=== PATIENT | female | born 1985 | race Caucasian/White ===

== ENCOUNTER 2021-03-31 12:43 | Inpatient (IN) | payer MEDICAID ==
[2021-03-31] MEDS ORDERED: Ondansetron 4 MG/2 ML SDV IV PRN (15:21)
[2021-03-31] MEDS ORDERED: Sodium Chloride 0.9% 10 ML Syringe FLUSH PRN (15:21)
[2021-03-31] MEDS: Lactated Ringers 1,000 ML IV SCH (16:37)
[2021-03-31] MEDS: Ciprofloxacin in D5W 400 MG in Premix Bag 1 BAG IV SCH ×2 (16:38)
[2021-03-31] MEDS: Morphine 2 MG/ML SYRINGE IVPUSH PRN ×2 (17:08→20:58)
--- NOTE | 2021-03-31 17:56 | PCM.HP.2 ---
H&P History of Present Illness - General Date of Service: 03/31/21 Admit Problem/Dx: Admission Diagnosis/Problem Admission Diagnosis/Problem Diverticulitis Source of Information: Patient History Limitations: Reports: No Limitations - History of Present Illness Initial Comments - Free Text/Narative: This is a 35-year-old female patient came into the ER because of sharp abdominal pain mostly in the middle, left lower quadrant little bit on the right lower quadrant. She states she's been dealing with this for quite some time. On March 05 she was seen at [facility] and told she had heartburn. Her abdominal pain became worse so she was seen [place] in the ER was diagnosed with diverticulitis and treated with IV meds 1 and sent home on Augmentin for 10 days. She had a follow-up with GI in [place] and she was fine at that time. Yesterday at 3:30 PM she started abdominal pain that caused her to bend over and so she was seen in the ER. Lastly in the ER they saw her and told her she needed to be admitted. She has 2 children at home that are young and so she says I went home so I will come back and get admitted later. She states that her pain as described above it does not radiate. She denies any nausea or vomiting. She has normal bowel movements without blood constipation or diarrhea. She said the Augmentin did give her some loose stools but that got better. She denies dysuria, pyuria, hematuria. She denies any vaginal discharge. Special. Was the beginning of the month and appears regular. She denies being says she's not had sex in about a year. She is G 17 with 2 stillborns to living and the rest miscarriages. She had a CT last night in the ER that showed acute cecal diverticulitis with perforation no abscess. Bilateral Lower Abdomen Pain Score (Numeric/FACES): 2 - Related Data Allergies/Adverse Reactions: Allergies Allergy/AdvReac Type Severity Reaction Status Date / Time iodine Allergy Itching Verified 03/30/21 18:48 Past Medical History HEENT History: Reports: Impaired Vision Other HEENT History: has eyeglasses at home, not with her, doesn't wear these often Gastrointestinal History: Reports: Other (See Below) Other Gastrointestinal History: diverticulitis Genitourinary History: Reports: Renal Calculus Other Genitourinary History: hx lithrotripsy [employer]ST History: Reports: Other OB/BYN History: has a 5 year old and 10 year old Musculoskeletal History: Reports: Other (See Below) Other Musculoskeletal History: Ehler-danlos disorder most of her lift Endocrine/Metabolic History: Reports: Obesity/BMI 30+ - Infectious Disease History Infectious Disease History: Reports: Chicken Pox - Past Surgical History Female Surgical History: Reports: Other (See Below) Other Female Surgeries/Procedures: cervical circlage Other Musculoskeletal Surgeries/Procedures:: states that she has Ehler-danlos, that doesn't cause any problems for her at the present time. Social & Family History - Family History Family Medical History: No Pertinent Family History - Tobacco Use Tobacco Use Status *Q: Current Every Day Tobacco User Years of Tobacco use: 15 Packs/Tins Daily: 0.5 Second Hand Smoke Exposure: No - Caffeine Use Caffeine Use: Reports: Soda Caffeine Use Comment: 2 cans a day - Recreational Drug Use Recreational Drug Use: No H&P Review of Systems - Review of Systems: Review Of Systems: See Below General: Denies: Fever, Chills, Weakness, Diaphoresis HEENT: Reports: No Symptoms Pulmonary: Reports: No Symptoms Cardiovascular: Reports: No Symptoms Gastrointestinal: Reports: Abdominal Pain. Denies: Bloody Stool, Diarrhea Genitourinary: Reports: No Symptoms Musculoskeletal: Reports: No Symptoms Skin: Reports: No Symptoms Psychiatric: Reports: No Symptoms Neurological: Reports: No Symptoms Hematologic/Lymphatic: Reports: No Symptoms Immunologic: Reports: No Symptoms Exam - Exam Exam: See Below - Vital Signs Vital Signs: Last Vital Signs Temp 99 F 03/31/21 15:21 Pulse 95 03/31/21 15:21 Resp 18 03/31/21 15:21 BP 104/66 03/31/21 15:21 Pulse Ox 95 03/31/21 15:21 Weight: 307 lb - Exam General: Alert, Oriented, Sedated HEENT: PERRLA, Hearing Intact, Posterior Pharynx Clear, TMs Clear Neck: Supple, Trachea Midline Lungs: Clear to Auscultation, Normal Respiratory Effort Cardiovascular: Regular Rate, Regular Rhythm. No: Systolic Murmur GI/Abdominal Exam: Other (Soft with some pain midline above the umbilicus, left lower quadrant and right lower quadrant. No rebound or guarding. Normal bowel sounds.) Extremities: Normal Inspection, Non-Tender, No Pedal Edema Skin: Warm, Dry, Intact Neuro Extensive - Mental Status: Alert, Oriented x3, Normal Mood/Affect, Normal Cognition Psychiatric: Alert, Normal Affect, Normal Mood - Patient Data Lab Results Last 24 hrs: Laboratory Results - last 24 hr 03/31/21 03/31/21 03/31/21 Range/Units 15:23 15:45 15:45 WBC 11.4 H (3.0-10.3) x10-3/uL RBC 4.22 (3.60-5.20) x10(6)uL Hgb 13.0 (11.4-15.5) g/dL Hct 38.7 (34.2-48.2) % MCV 91.9 (76.7-100.5) fL MCH 30.8 (23.9-33.9) pg MCHC 33.5 (31.9-34.8) g/dL RDW 14.1 (12.3-16.5) % Plt Count 184 (151-488) x10(3)uL MPV 8.9 (7.1-12.4) fL Neut % (Auto) 73.6 (30.8-76.2) % Lymph % (Auto) 16.3 L (18.4-52.1) % [place] % (Auto) 9.3 (4.4-15.7) % Eos % (Auto) 0.5 L (0.6-8.1) % Baso % (Auto) 0.3 (0.2-1.5) % Neut # (Auto) 8.3 H (1.5-6.3) x10-3/uL Lymph # (Auto) 1.9 (1.0-4.4) x10-3/uL [place] # (Auto) 1.1 H (0.3-1.0) x10-3/uL Eos # (Auto) 0.1 (0.0-0.8) x10-3/uL Baso # (Auto) 0.0 (0.0-0.1) x10-3/uL Sodium 138 (135-145) mmol/L Potassium 3.5 (3.5-5.3) mmol/L Chloride 100 (100-110) mmol/L Carbon Dioxide 28 (21-32) mmol/L BUN 11 (7-18) mg/dL Creatinine 0.7 (0.55-1.02) mg/dL Est Cr Clr Drug Dosing 88.72 mL/min Estimated GFR (MDRD) > 60 (>60) BUN/Creatinine Ratio 15.7 (9-20) Glucose 100 (80-116) mg/dL Calcium 7.5 L (8.6-10.2) mg/dL Total Bilirubin 0.7 (0.1-1.3) mg/dL AST 18 D (5-25) IU/L ALT 38 H D (12-36) U/L Alkaline Phosphatase 60 (56-112) IU/L Total Protein 6.5 (6.0-8.0) g/dL Albumin 2.9 L (3.5-5.2) g/dL Globulin 3.6 g/dL Albumin/Globulin Ratio 0.8 Urine Color (YELLOW) Urine Appearance (CLEAR) Urine pH (5.0-6.5) Ur Specific [place] (1.010-1.025) Urine Protein (NEGATIVE) mg/dL Urine Glucose (UA) (NORMAL) mg/dL Urine Ketones (NEGATIVE) mg/dL Urine Occult Blood (NEGATIVE) Urine Nitrite (NEGATIVE) Urine Bilirubin (NEGATIVE) Urine Urobilinogen (NEGATIVE) mg/dL Ur Leukocyte Esterase (NEGATIVE) Urine RBC (0-5) Urine WBC (0-5) Ur Squamous Epith Cells (NS,R,O) Urine Bacteria (NS) SARS-CoV-2 RNA (GLENDA) Negative (NEGATIVE) 03/31/21 Range/Units 16:15 WBC (3.0-10.3) x10-3/uL RBC (3.60-5.20) x10(6)uL Hgb (11.4-15.5) g/dL Hct (34.2-48.2) % MCV (76.7-100.5) fL MCH (23.9-33.9) pg MCHC (31.9-34.8) g/dL RDW (12.3-16.5) % Plt Count (151-488) x10(3)uL MPV (7.1-12.4) fL Neut % (Auto) (30.8-76.2) % Lymph % (Auto) (18.4-52.1) % [place] % (Auto) (4.4-15.7) % Eos % (Auto) (0.6-8.1) % Baso % (Auto) (0.2-1.5) % Neut # (Auto) (1.5-6.3) x10-3/uL Lymph # (Auto) (1.0-4.4) x10-3/uL [place] # (Auto) (0.3-1.0) x10-3/uL Eos # (Auto) (0.0-0.8) x10-3/uL Baso # (Auto) (0.0-0.1) x10-3/uL Sodium (135-145) mmol/L Potassium (3.5-5.3) mmol/L Chloride (100-110) mmol/L Carbon Dioxide (21-32) mmol/L BUN (7-18) mg/dL Creatinine (0.55-1.02) mg/dL Est Cr Clr Drug Dosing mL/min Estimated GFR (MDRD) (>60) BUN/Creatinine Ratio (9-20) Glucose (80-116) mg/dL Calcium (8.6-10.2) mg/dL Total Bilirubin (0.1-1.3) mg/dL AST (5-25) IU/L ALT (12-36) U/L Alkaline Phosphatase (56-112) IU/L Total Protein (6.0-8.0) g/dL Albumin (3.5-5.2) g/dL Globulin g/dL Albumin/Globulin Ratio Urine Color [place] (YELLOW) Urine Appearance Slightly cloudy (CLEAR) Urine pH 5.0 (5.0-6.5) Ur Specific [place] 1.020 (1.010-1.025) Urine Protein Trace (NEGATIVE) mg/dL Urine Glucose (UA) Normal (NORMAL) mg/dL Urine Ketones 15 H (NEGATIVE) mg/dL Urine Occult Blood Negative (NEGATIVE) Urine Nitrite Negative (NEGATIVE) Urine Bilirubin Small H (NEGATIVE) Urine Urobilinogen 4 H (NEGATIVE) mg/dL Ur Leukocyte Esterase Small H (NEGATIVE) Urine RBC 0-5 (0-5) Urine WBC 0-5 (0-5) Ur Squamous Epith Cells Few H (NS,R,O) Urine Bacteria Few H (NS) SARS-CoV-2 RNA (GLENDA) (NEGATIVE) Result Diagrams: 03/31/21 15:45 03/31/21 15:45 Sepsis Event Note - Evaluation Sepsis Screening Result: No Definite Risk - Focused Exam Vital Signs: Vital Signs Temp Pulse Resp BP Pulse Ox 03/31/21 15:21 99 F 95 18 104/66 95 03/31/21 13:55 98.6 F 110 H 18 142/87 H - Problem List (1) Diverticulitis SNOMED Code(s): 013807296 ICD Code: K57.92 - DVTRCLI OF INTEST, PART UNSP, W/O PERF OR ABSCESS W/O BLEED Status: Acute Current Visit: Yes (2) Cecum perforation SNOMED Code(s): 458851039 ICD Code: K35.32 - ACUTE APPENDICITIS WITH PERF AND LOC PERITONITIS, W/O ABSCS Status: Acute Current Visit: Yes (3) Syl-Danlos syndrome SNOMED Code(s): 793076724 ICD Code: Q79.60 - SYL-DANLOS SYNDROME, UNSPECIFIED Status: Acute Current Visit: Yes Problem List Initiated/Reviewed/Updated: Yes Orders Last 24hrs: Active Orders 24 hr Category Date Time Status Patient Status [ADT] Routine ADT 03/31/21 15:21 Active Notify Provider Consults [RC] ASDIRECTED Care 03/31/21 15:24 Active Oxygen Therapy [RC] PRN Care 03/31/21 15:21 Active Up ad Nisha [RC] ASDIRECTED Care 03/31/21 15:21 Active VTE/DVT Education [RC] Per Unit Routine Care 03/31/21 15:21 Active Vital Signs [RC] Q4H Care 03/31/21 15:21 Active Consult to Physician [CONS] Routine Cons 03/31/21 15:21 Ordered Nothing per Oral Now Diet [DIET] Diet 03/31/21 Dinner Active CULTURE BLOOD [BC] Urgent Lab 03/31/21 15:45 Received CULTURE BLOOD [BC] Urgent Lab 03/31/21 15:50 Received Ciprofloxacin in D5W [Cipro in D5W 400 MG/200 ML] 400 Med 03/31/21 16:00 Active mg Premix Bag 1 bag IV Q12H Lactated Ringers [Ringers, Lactated] 1,000 ml Med 03/31/21 15:30 Active IV ASDIRECTED Morphine Med 03/31/21 15:26 Active 2 mg IVPUSH Q2H PRN Sodium Chloride 0.9% [Saline Flush] Med 03/31/21 15:21 Active 10 ml FLUSH ASDIRECTED PRN metroNIDAZOLE/Normal Saline [Flagyl in NS 500 MG/100 ML Med 03/31/21 17:00 Active ] 500 mg Premix Bag 1 bag IV Q8H Blood Culture x2 Reflex Set [OM.PC] Urgent Oth 03/31/21 15:21 Ordered Peripheral IV Insertion Adult [OM.PC] Routine Oth 03/31/21 15:21 Ordered Sequential Compression Device [OM.PC] Per Unit Routine Oth 03/31/21 15:22 Ordered Resuscitation Status Routine Resus Stat 03/31/21 15:21 Ordered Medication Orders Lactated Ringer's (Ringers, Lactated) 1,000 mls @ 125 mls/hr IV ASDIRECTED ANURAG Last Admin: 03/31/21 16:37 Dose: 125 mls/hr Documented by: LENCHO Metronidazole 500 mg/ Premix 100 mls @ 100 mls/hr IV Q8H AN[facility]AG Ciprofloxacin/Dextrose 400 mg/ (Premix) 200 mls @ 200 mls/hr IV Q12H ANURAG Last Admin: 03/31/21 16:38 Dose: 200 mls/hr Documented by: LENCHO Morphine Sulfate (Morphine 2 Mg/Ml Syringe) 2 mg IVPUSH Q2H PRN PRN Reason: Pain Last Admin: 03/31/21 17:08 Dose: 2 mg Documented by: WILMER Sodium Chloride (Sodium Chloride 0.9% 10 Ml Syringe) 10 ml FLUSH ASDIRECTED PRN PRN Reason: Keep Vein Open Last Admin: 03/31/21 16:36 Dose: 10 ml Documented by: LENCHO Assessment/Plan Comment:: 1. Admit to inpatient. 2. Full code. 3. Nothing by mouth 4. IV fluids LR at 125 mL an hour. 5. Dr. Bashir Khalil has been notified for consultation. 6. SCD for clot prophylaxis. Hold off on Lovenox until after surgical consult ation. 7. CBC, Chem-12, UA 8. Reviewed CT done last night in the chart. 9. Up ad nisha. 10. IV morphine 2 mg every 2 hours when necessary for pain - Mortality Measure Prognosis:: Good
[2021-03-31] MEDS: metroNIDAZOLE/Normal Saline 500 MG in Premix Bag 1 BAG IV SCH (17:57)
[2021-04-01] MEDS: metroNIDAZOLE/Normal Saline 500 MG in Premix Bag 1 BAG IV SCH ×3 (01:10→18:08)
[2021-04-01] MEDS: Morphine 2 MG/ML SYRINGE IVPUSH PRN ×2 (01:10→14:25)
[2021-04-01] MEDS: Ciprofloxacin in D5W 400 MG in Premix Bag 1 BAG IV SCH ×4 (04:15→16:12)
--- NOTE | 2021-04-01 07:30 | PCM.PN ---
- General Info Date of Service: 04/01/21 Admission Dx/Problem (Free Text): Admission Diagnosis/Problem Admission Diagnosis/Problem Diverticulitis Subjective Update: Patient states that she feels well except for abdominal pain when she tries to sit up from a supine position. She does not have any chest pain, fever, chills, shortness of breath, lower extremity swelling/pain, nausea, vomiting. She does state that she is a little hungry - Review of Systems General: Reports: No Symptoms HEENT: Reports: No Symptoms Pulmonary: Reports: No Symptoms Cardiovascular: Reports: No Symptoms Gastrointestinal: Reports: Abdominal Pain Genitourinary: Reports: No Symptoms Musculoskeletal: Reports: No Symptoms Skin: Reports: No Symptoms Neurological: Reports: No Symptoms Psychiatric: Reports: No Symptoms - Patient Data Vitals - Most Recent: Last Vital Signs Temp 36.9 C 04/01/21 04:15 Pulse 95 04/01/21 04:15 Resp 18 04/01/21 04:15 BP 113/59 L 04/01/21 04:15 Pulse Ox 91 L 04/01/21 04:15 Weight - Most Recent: 139.253 kg I&O - Last 24 Hours: Intake & Output 03/31/21 04/01/21 04/01/21 22:59 06:59 14:59 Intake Total 1095 Output Total 450 Balance -450 1095 Lab Results Last 24 Hours: Laboratory Results - last 24 hr 03/31/21 03/31/21 03/31/21 Range/Units 15:23 15:45 15:45 WBC 11.4 H (3.0-10.3) x10-3/uL RBC 4.22 (3.60-5.20) x10(6)uL Hgb 13.0 (11.4-15.5) g/dL Hct 38.7 (34.2-48.2) % MCV 91.9 (76.7-100.5) fL MCH 30.8 (23.9-33.9) pg MCHC 33.5 (31.9-34.8) g/dL RDW 14.1 (12.3-16.5) % Plt Count 184 (151-488) x10(3)uL MPV 8.9 (7.1-12.4) fL Neut % (Auto) 73.6 (30.8-76.2) % Lymph % (Auto) 16.3 L (18.4-52.1) % [place] % (Auto) 9.3 (4.4-15.7) % Eos % (Auto) 0.5 L (0.6-8.1) % Baso % (Auto) 0.3 (0.2-1.5) % Neut # (Auto) 8.3 H (1.5-6.3) x10-3/uL Lymph # (Auto) 1.9 (1.0-4.4) x10-3/uL [place] # (Auto) 1.1 H (0.3-1.0) x10-3/uL Eos # (Auto) 0.1 (0.0-0.8) x10-3/uL Baso # (Auto) 0.0 (0.0-0.1) x10-3/uL Sodium 138 (135-145) mmol/L Potassium 3.5 (3.5-5.3) mmol/L Chloride 100 (100-110) mmol/L Carbon Dioxide 28 (21-32) mmol/L BUN 11 (7-18) mg/dL Creatinine 0.7 (0.55-1.02) mg/dL Est Cr Clr Drug Dosing 88.72 mL/min Estimated GFR (MDRD) > 60 (>60) BUN/Creatinine Ratio 15.7 (9-20) Glucose 100 (80-116) mg/dL Calcium 7.5 L (8.6-10.2) mg/dL Total Bilirubin 0.7 (0.1-1.3) mg/dL AST 18 D (5-25) IU/L ALT 38 H D (12-36) U/L Alkaline Phosphatase 60 (56-112) IU/L Total Protein 6.5 (6.0-8.0) g/dL Albumin 2.9 L (3.5-5.2) g/dL Globulin 3.6 g/dL Albumin/Globulin Ratio 0.8 Urine Color (YELLOW) Urine Appearance (CLEAR) Urine pH (5.0-6.5) Ur Specific [place] (1.010-1.025) Urine Protein (NEGATIVE) mg/dL Urine Glucose (UA) (NORMAL) mg/dL Urine Ketones (NEGATIVE) mg/dL Urine Occult Blood (NEGATIVE) Urine Nitrite (NEGATIVE) Urine Bilirubin (NEGATIVE) Urine Urobilinogen (NEGATIVE) mg/dL Ur Leukocyte Esterase (NEGATIVE) Urine RBC (0-5) Urine WBC (0-5) Ur Squamous Epith Cells (NS,R,O) Urine Bacteria (NS) SARS-CoV-2 RNA (GLENDA) Negative (NEGATIVE) 03/31/21 Range/Units 16:15 WBC (3.0-10.3) x10-3/uL RBC (3.60-5.20) x10(6)uL Hgb (11.4-15.5) g/dL Hct (34.2-48.2) % MCV (76.7-100.5) fL MCH (23.9-33.9) pg MCHC (31.9-34.8) g/dL RDW (12.3-16.5) % Plt Count (151-488) x10(3)uL MPV (7.1-12.4) fL Neut % (Auto) (30.8-76.2) % Lymph % (Auto) (18.4-52.1) % [place] % (Auto) (4.4-15.7) % Eos % (Auto) (0.6-8.1) % Baso % (Auto) (0.2-1.5) % Neut # (Auto) (1.5-6.3) x10-3/uL Lymph # (Auto) (1.0-4.4) x10-3/uL [place] # (Auto) (0.3-1.0) x10-3/uL Eos # (Auto) (0.0-0.8) x10-3/uL Baso # (Auto) (0.0-0.1) x10-3/uL Sodium (135-145) mmol/L Potassium (3.5-5.3) mmol/L Chloride (100-110) mmol/L Carbon Dioxide (21-32) mmol/L BUN (7-18) mg/dL Creatinine (0.55-1.02) mg/dL Est Cr Clr Drug Dosing mL/min Estimated GFR (MDRD) (>60) BUN/Creatinine Ratio (9-20) Glucose (80-116) mg/dL Calcium (8.6-10.2) mg/dL Total Bilirubin (0.1-1.3) mg/dL AST (5-25) IU/L ALT (12-36) U/L Alkaline Phosphatase (56-112) IU/L Total Protein (6.0-8.0) g/dL Albumin (3.5-5.2) g/dL Globulin g/dL Albumin/Globulin Ratio Urine Color [place] (YELLOW) Urine Appearance Slightly cloudy (CLEAR) Urine pH 5.0 (5.0-6.5) Ur Specific [place] 1.020 (1.010-1.025) Urine Protein Trace (NEGATIVE) mg/dL Urine Glucose (UA) Normal (NORMAL) mg/dL Urine Ketones 15 H (NEGATIVE) mg/dL Urine Occult Blood Negative (NEGATIVE) Urine Nitrite Negative (NEGATIVE) Urine Bilirubin Small H (NEGATIVE) Urine Urobilinogen 4 H (NEGATIVE) mg/dL Ur Leukocyte Esterase Small H (NEGATIVE) Urine RBC 0-5 (0-5) Urine WBC 0-5 (0-5) Ur Squamous Epith Cells Few H (NS,R,O) Urine Bacteria Few H (NS) SARS-CoV-2 RNA (GLENDA) (NEGATIVE) Med Orders - Current: Current Medications Lactated Ringer's (Ringers, Lactated) 1,000 mls @ 125 mls/hr IV ASDIRECTED [facility] Last Admin: 03/31/21 16:37 Dose: 125 mls/hr Documented by: Metronidazole 500 mg/ Premix 100 mls @ 100 mls/hr IV Q8H [facility] Last Admin: 04/01/21 01:10 Dose: 100 mls/hr Documented by: Ciprofloxacin/Dextrose 400 mg/ (Premix) 200 mls @ 200 mls/hr IV Q12H [facility] Last Admin: 04/01/21 04:15 Dose: 200 mls/hr Documented by: Morphine Sulfate (Morphine 2 Mg/Ml Syringe) 2 mg IVPUSH Q2H PRN PRN Reason: Pain Last Admin: 04/01/21 01:10 Dose: 2 mg Documented by: Sodium Chloride (Sodium Chloride 0.9% 10 Ml Syringe) 10 ml FLUSH ASDIRECTED PRN PRN Reason: Keep Vein Open Last Admin: 03/31/21 16:36 Dose: 10 ml Documented by: Comments:: Patient was sitting up in bed talking with a friend on the phone, laughing and smiling when I walked into the room, she is alert, interactive, pleasant - Exam Quality Assessment: Supplemental Oxygen, DVT Prophylaxis, Skin Breakdown General: Alert, Oriented, Cooperative, No Acute Distress HEENT: EOMI Lungs: Clear to Auscultation Cardiovascular: Regular Rhythm, No Murmurs, Tachycardia GI/Abdominal Exam: Tender, Other (Bowel sounds are normally active in all 4 quadrants. There is occasional high-pitched bowel sound in the right lower quadrant) Extremities: Normal Inspection Peripheral Pulses: 2+: Radial (L), Radial (R), Dorsalis Pedis (L), Dorsalis Pedis (R) Skin: Warm, Dry, Intact Neurological: No New Focal Deficit Psy/Mental Status: Alert, Normal Affect, Normal Mood - Patient Data Lab Results Last 24 hrs: Laboratory Results - last 24 hr 03/31/21 03/31/21 03/31/21 Range/Units 15:23 15:45 15:45 WBC 11.4 H (3.0-10.3) x10-3/uL RBC 4.22 (3.60-5.20) x10(6)uL Hgb 13.0 (11.4-15.5) g/dL Hct 38.7 (34.2-48.2) % MCV 91.9 (76.7-100.5) fL MCH 30.8 (23.9-33.9) pg MCHC 33.5 (31.9-34.8) g/dL RDW 14.1 (12.3-16.5) % Plt Count 184 (151-488) x10(3)uL MPV 8.9 (7.1-12.4) fL Neut % (Auto) 73.6 (30.8-76.2) % Lymph % (Auto) 16.3 L (18.4-52.1) % [place] % (Auto) 9.3 (4.4-15.7) % Eos % (Auto) 0.5 L (0.6-8.1) % Baso % (Auto) 0.3 (0.2-1.5) % Neut # (Auto) 8.3 H (1.5-6.3) x10-3/uL Lymph # (Auto) 1.9 (1.0-4.4) x10-3/uL [place] # (Auto) 1.1 H (0.3-1.0) x10-3/uL Eos # (Auto) 0.1 (0.0-0.8) x10-3/uL Baso # (Auto) 0.0 (0.0-0.1) x10-3/uL Sodium 138 (135-145) mmol/L Potassium 3.5 (3.5-5.3) mmol/L Chloride 100 (100-110) mmol/L Carbon Dioxide 28 (21-32) mmol/L BUN 11 (7-18) mg/dL Creatinine 0.7 (0.55-1.02) mg/dL Est Cr Clr Drug Dosing 88.72 mL/min Estimated GFR (MDRD) > 60 (>60) BUN/Creatinine Ratio 15.7 (9-20) Glucose 100 (80-116) mg/dL Calcium 7.5 L (8.6-10.2) mg/dL Total Bilirubin 0.7 (0.1-1.3) mg/dL AST 18 D (5-25) IU/L ALT 38 H D (12-36) U/L Alkaline Phosphatase 60 (56-112) IU/L Total Protein 6.5 (6.0-8.0) g/dL Albumin 2.9 L (3.5-5.2) g/dL Globulin 3.6 g/dL Albumin/Globulin Ratio 0.8 Urine Color (YELLOW) Urine Appearance (CLEAR) Urine pH (5.0-6.5) Ur Specific [place] (1.010-1.025) Urine Protein (NEGATIVE) mg/dL Urine Glucose (UA) (NORMAL) mg/dL Urine Ketones (NEGATIVE) mg/dL Urine Occult Blood (NEGATIVE) Urine Nitrite (NEGATIVE) Urine Bilirubin (NEGATIVE) Urine Urobilinogen (NEGATIVE) mg/dL Ur Leukocyte Esterase (NEGATIVE) Urine RBC (0-5) Urine WBC (0-5) Ur Squamous Epith Cells (NS,R,O) Urine Bacteria (NS) SARS-CoV-2 RNA (GLENDA) Negative (NEGATIVE) 03/31/21 Range/Units 16:15 WBC (3.0-10.3) x10-3/uL RBC (3.60-5.20) x10(6)uL Hgb (11.4-15.5) g/dL Hct (34.2-48.2) % MCV (76.7-100.5) fL MCH (23.9-33.9) pg MCHC (31.9-34.8) g/dL RDW (12.3-16.5) % Plt Count (151-488) x10(3)uL MPV (7.1-12.4) fL Neut % (Auto) (30.8-76.2) % Lymph % (Auto) (18.4-52.1) % [place] % (Auto) (4.4-15.7) % Eos % (Auto) (0.6-8.1) % Baso % (Auto) (0.2-1.5) % Neut # (Auto) (1.5-6.3) x10-3/uL Lymph # (Auto) (1.0-4.4) x10-3/uL [place] # (Auto) (0.3-1.0) x10-3/uL Eos # (Auto) (0.0-0.8) x10-3/uL Baso # (Auto) (0.0-0.1) x10-3/uL Sodium (135-145) mmol/L Potassium (3.5-5.3) mmol/L Chloride (100-110) mmol/L Carbon Dioxide (21-32) mmol/L BUN (7-18) mg/dL Creatinine (0.55-1.02) mg/dL Est Cr Clr Drug Dosing mL/min Estimated GFR (MDRD) (>60) BUN/Creatinine Ratio (9-20) Glucose (80-116) mg/dL Calcium (8.6-10.2) mg/dL Total Bilirubin (0.1-1.3) mg/dL AST (5-25) IU/L ALT (12-36) U/L Alkaline Phosphatase (56-112) IU/L Total Protein (6.0-8.0) g/dL Albumin (3.5-5.2) g/dL Globulin g/dL Albumin/Globulin Ratio Urine Color [place] (YELLOW) Urine Appearance Slightly cloudy (CLEAR) Urine pH 5.0 (5.0-6.5) Ur Specific [place] 1.020 (1.010-1.025) Urine Protein Trace (NEGATIVE) mg/dL Urine Glucose (UA) Normal (NORMAL) mg/dL Urine Ketones 15 H (NEGATIVE) mg/dL Urine Occult Blood Negative (NEGATIVE) Urine Nitrite Negative (NEGATIVE) Urine Bilirubin Small H (NEGATIVE) Urine Urobilinogen 4 H (NEGATIVE) mg/dL Ur Leukocyte Esterase Small H (NEGATIVE) Urine RBC 0-5 (0-5) Urine WBC 0-5 (0-5) Ur Squamous Epith Cells Few H (NS,R,O) Urine Bacteria Few H (NS) SARS-CoV-2 RNA (GLENDA) (NEGATIVE) Result Diagrams: 03/31/21 15:45 03/31/21 15:45 Sepsis Event Note - Evaluation Sepsis Screening Result: No Definite Risk - Focused Exam Vital Signs: Vital Signs Temp Pulse Resp BP Pulse Ox 04/01/21 04:15 36.9 C 95 18 113/59 L 91 L 03/31/21 19:57 37.0 C 101 H 20 148/61 H 96 - Problem List & Annotations (1) Obesity SNOMED Code(s): 002417245, 698493803 Code(s): E66.9 - OBESITY, UNSPECIFIED Status: Chronic Current Visit: Yes (2) Diverticulitis SNOMED Code(s): 055449370 Code(s): K57.92 - DVTRCLI OF INTEST, PART UNSP, W/O PERF OR ABSCESS W/O BLEED Status: Acute Current Visit: Yes (3) Cecum perforation SNOMED Code(s): 473223618 Code(s): K35.32 - ACUTE APPENDICITIS WITH PERF AND LOC PERITONITIS, W/O ABSCS Status: Acute Current Visit: Yes (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 Appreciate Dr. Khalil consultation, further recommendations based on expert consultation Patient will remain n.p.o., continue lactated Ringer's at 125 mL/h Anticoagulation will be held pending surgery consultation, continue SCDs Disposition: Pending expert consultation. If the patient does not require surgery she will likely be advanced to a clear liquid diet this afternoon and if tolerated to solid food tomorrow. If the patient tolerates solid food she will likely be discharged on 04/02 in the afternoon or 04/03 with oral ciprofloxacin and metronidazole.
[2021-04-01] MEDS: Lactated Ringers 1,000 ML IV SCH ×2 (13:38→23:00)
[2021-04-01] MEDS: Acetaminophen 500 MG Tab PO PRN (20:17)
[2021-04-02] MEDS: metroNIDAZOLE/Normal Saline 500 MG in Premix Bag 1 BAG IV SCH (01:13)
[2021-04-02] MEDS: Acetaminophen 500 MG Tab PO PRN (01:23)
[2021-04-02] MEDS: Ciprofloxacin in D5W 400 MG in Premix Bag 1 BAG IV SCH ×2 (04:15)
--- NOTE | 2021-04-02 07:08 | CONS ---
DATE OF CONSULTATION: 04/01/2021 HISTORY OF PRESENT ILLNESS: This 35-year-old female was seen today in consultation at the request of Dr. Cormier. This patient presented to the emergency room 2 nights ago with abdominal pain. She was evaluated with studies including a CT scan of the abdomen, which identified inflammation, fat stranding, and suggestion of possible micro perforation adjacent to the cecum from diverticulitis. The patient notes that she had been initially treated for diverticulitis approximately a month ago where she did receive a dose of IV antibiotics and then was sent home with oral antibiotics, which she took for a week. She felt well for several days, but developed rather sudden onset of her abdominal pain 2 days ago. Upon being evaluated in the emergency room, admission was recommended for IV antibiotic therapy, but she declined this and went home, then presented back today to accept admission. She describes her pain as being in the upper mid abdomen as well as in both the right and left lower quadrants. She has not had fever or chills. She has continued to have bowel movements and has been able to eat. Other diagnostic data showed a slight elevation of her serum white blood cell count yesterday at 11.4. The patient states she has not had difficulty with diverticulitis prior to this, and generally has normal appetite and normal bowel function. She has never had a previous colon evaluation. PAST MEDICAL HISTORY: Notes no previous abdominal surgery other than lithotripsy for renal calculus. She has been diagnosed with Syl-Danlos syndrome. She is currently not having any symptoms from this condition. FAMILY HISTORY: Negative for any known GI disease. SOCIAL HISTORY: The patient does smoke and is not . REVIEW OF SYSTEMS: She has not been experiencing any shortness of breath or cough. No chest pain or palpitations, and she currently notes that her abdominal pain is very mild. PHYSICAL EXAMINATION: VITAL SIGNS: Temperature is 98.4, pulse 95, blood pressure is 113/59. GENERAL: The patient is alert, adult female. She is currently in no acute distress. She converses easily. Does not demonstrate any difficulty breathing. HEENT: Head is normocephalic. No scleral icterus. HEART: Regular without murmur. LUNGS: Clear. Breath sounds are equal. There is no wheezing. ABDOMEN: Currently soft. There is tenderness to deep direct palpation in the right lower quadrant and also to a lesser degree in the mid upper abdomen and left lower quadrant. No guarding, distention, or masses noted. IMPRESSION: Acute cecal diverticulitis with associated upper abdominal pain. RECOMMENDATIONS: Agree with initial treatment with IV antibiotics for the diverticulitis. Also agree with plans to start the patient on a liquid diet, which she hopefully will be able to progress up to a soft diet in the next 1 to 2 days. If the patient does well, she will likely be able to be discharged soon on oral antibiotics. I did discuss with her the importance of proper diet restrictions in light of her acute diverticulitis and also discussed long-term expectations. I would recommend that the patient continue on some type of PPI agent over the next 2 to 4 weeks because of her history of upper abdominal pain. I would also recommend that in about 2 months or later that she undergo an EGD as well as colonoscopy to be sure that there are no other hidden diagnoses that might explain her somewhat unusual pain pattern. She agrees to this plan and it is reviewed with the hospitalist on-call today. I will see the patient back fay /[id number] ERMA/ODALYS
[2021-04-02] MEDS ORDERED: metroNIDAZOLE 500 MG Tab ONE (08:27)
[2021-04-02] MEDS ORDERED: Ciprofloxacin 500 MG Tab ONE (08:28)
[2021-04-02] MEDS ORDERED: metroNIDAZOLE 500 MG Tab PO SCH (08:30)
--- NOTE | 2021-04-02 11:49 | PCM.DCSUM1 ---
Discharge Summary - Hospital Course Free Text/Narrative:: 35-year-old lady presented to the emergency department prior to the day she was admitted to the hospital from the emergency department. Her symptoms were fairly consistent with abdominal pain, nausea, fatigue, malaise. CT scan showed likely diverticulitis of the cecum with possible perforation. Patient had been treated in the previous week with Augmentin. Was given IV ciprofloxacin and Flagyl, placed n.p.o., and admitted to the hospital. The following day her diet was advanced to full liquids and she tolerated the diet well. She had no complaints throughout her 4-day in the hospital. On the morning of the second day her diet was advanced to a regular diet and she was advanced to oral Flagyl and ciprofloxacin. She continues to feel well with no nausea, mild abdominal pain, and no weakness or malaise. She states that she feels much better and is ready to go home. I discussed her consultation with surgery, Dr. Peck, and she states that she understands her diagnosis and what her diet needs to be for the next 2 months. She is advised to follow-up with a primary care physician, maintain the diet given to her, take omeprazole, 40 mg daily, and schedule a colonoscopy for approximately 2 months. HPI Initial Comments: This is a 35-year-old female patient came into the ER because of sharp abdominal pain mostly in the middle, left lower quadrant little bit on the right lower quadrant. She states she's been dealing with this for quite some time. On March 05 she was seen at [facility] and told she had heartburn. Her abdominal pain became worse so she was seen Wilma in the ER was diagnosed with diverticulitis and treated with IV meds 1 and sent home on Augmentin for 10 days. She had a follow-up with GI in [place] and she was fine at that time. Yesterday at 3:30 PM she started abdominal pain that caused her to bend over and so she was seen in the ER. Lastly in the ER they saw her and told her she needed to be admitted. She has 2 children at home that are young and so she says I went home so I will come back and get admitted later. She states that her pain as described above it does not radiate. She denies any nausea or vomiting. She has normal bowel movements without blood constipation or diarrhea. She said the Augmentin did give her some loose stools but that got better. She denies dysuria, pyuria, hematuria. She denies any vaginal discharge. Special. Was the beginning of the month and appears regular. She denies being says she's not had sex in about a year. She is G 17 with 2 stillborns to living and the rest miscarriages. She had a CT last night in the ER that showed acute cecal diverticulitis with perforation no abscess. Diagnosis: Stroke: No - Discharge Data Discharge Date: 04/02/21 Discharge Disposition: Home, Self-Care 01 Condition: Good - Referral to Home Health Primary Care Physician: PCP None - Discharge Diagnosis/Problem(s) (1) Obesity SNOMED Code(s): 164669252, 524196034 ICD Code: E66.9 - OBESITY, UNSPECIFIED Status: Chronic Current Visit: Yes (2) Diverticulitis SNOMED Code(s): 528950573 ICD Code: K57.92 - DVTRCLI OF INTEST, PART UNSP, W/O PERF OR ABSCESS W/O BLEED Status: Acute Current Visit: Yes (3) Cecum perforation SNOMED Code(s): 128395629 ICD Code: K35.32 - ACUTE APPENDICITIS WITH PERF AND LOC PERITONITIS, W/O ABSCS Status: Acute Current Visit: Yes (4) Syl-Danlos syndrome SNOMED Code(s): 001600666 ICD Code: Q79.60 - SYL-DANLOS SYNDROME, UNSPECIFIED Status: Chronic Current Visit: Yes - Patient Summary/Data Consults: Consultations 03/31/21 15:21 Consult to Physician [CONS] Routine Consulting Provider: Bashir Peck Call Completed to Consulting Physician: Yes - Patient Instructions Diet: Heart Healthy Diet Activity: As Tolerated Driving: May Drive Today Showering/Bathing: May Shower Notify Provider of: Fever, Increased Pain, Nausea and/or Vomiting - Discharge Plan *PRESCRIPTION DRUG MONITORING PROGRAM REVIEWED*: Not Applicable *COPY OF PRESCRIPTION DRUG MONITORING REPORT IN PATIENT GEORGE: Not Applicable Prescriptions/Med Rec: Ciprofloxacin [Ciprofloxacin HCl] 500 mg PO BID #19 tablet metroNIDAZOLE [Flagyl] 500 mg PO Q8H #29 tablet Home Medications: Home Meds Ciprofloxacin [Ciprofloxacin HCl] 500 mg PO BID #19 tablet 04/02/21 [Rx] metroNIDAZOLE [Flagyl] 500 mg PO Q8H #29 tablet 04/02/21 [Rx] Patient Handouts: Diverticulitis, [id number], Fall Prevention in Hospitals, Adult, Venous Thromboembolism Prevention Referrals: Rolando Cormier DO [Physician] - - Discharge Summary/Plan Comment DC Time >30 min.: No Discharge Summary/Plan Comment: Patient will be discharged to home today with the above instructions. Patient was urged to go to the pharmacy and fill her prescriptions and begin taking the prescriptions as directed immediately. I explained to the patient the proper way to take omeprazole. I encouraged her to follow-up with her primary care physician. She will need a colonoscopy at approximately 2 months. This patient would greatly benefit from a sleep study due to suspicion of obstructive sleep apnea. - General Info Date of Service: 04/02/21 Admission Dx/Problem (Free Text: Admission Diagnosis/Problem Admission Diagnosis/Problem Diverticulitis Subjective Update: Patient states that she feels quite well and is ready to go home. She still has mild right lower quadrant abdominal pain but says this pain has significantly improved. She has no other concerns or complaints at this time. Functional Status: Reports: Pain Controlled, Tolerating Diet, Ambulating, Urinating - Review of Systems General: Reports: No Symptoms HEENT: Reports: No Symptoms Pulmonary: Reports: No Symptoms Cardiovascular: Reports: No Symptoms Gastrointestinal: Reports: Abdominal Pain Genitourinary: Reports: No Symptoms Musculoskeletal: Reports: No Symptoms Skin: Reports: No Symptoms Neurological: Reports: No Symptoms Psychiatric: Reports: No Symptoms - Patient Data Vitals - Most Recent: Last Vital Signs Temp 36.6 C 04/02/21 07:40 Pulse 81 04/02/21 07:40 Resp 16 04/02/21 07:40 BP 131/76 04/02/21 07:40 Pulse Ox 98 04/02/21 07:40 Weight - Most Recent: 139.253 kg I&O - Last 24 hours: Intake & Output 04/01/21 04/02/21 04/02/21 22:59 06:59 14:59 Intake Total 1550 1085 337 Output Total 850 350 Balance 700 735 337 GIANA Results - Last 24 hrs: Microbiology 03/31/21 15:45 Aerobic Blood Culture - Preliminary Blood - Venous NO GROWTH AFTER 1 DAY Anaerobic Blood Culture - Preliminary NO GROWTH AFTER 1 DAY 03/31/21 15:50 Aerobic Blood Culture - Preliminary Blood - Venous - Lab Draw NO GROWTH AFTER 1 DAY Anaerobic Blood Culture - Preliminary NO GROWTH AFTER 1 DAY Med Orders - Current: Current Medications Acetaminophen (Acetaminophen 500 Mg Tab) 500 mg PO Q4H PRN PRN Reason: Pain Last Admin: 04/02/21 01:23 Dose: 500 mg Documented by: Ciprofloxacin (Ciprofloxacin 500 Mg Tab) 500 mg PO BID ANURAG Metronidazole (Metronidazole 500 Mg Tab) 500 mg PO Q8H [facility] Last Admin: 04/02/21 08:33 Dose: 500 mg Documented by: Morphine Sulfate (Morphine 2 Mg/Ml Syringe) 2 mg IVPUSH Q2H PRN PRN Reason: Pain Last Admin: 04/01/21 14:25 Dose: 2 mg Documented by: Sodium Chloride (Sodium Chloride 0.9% 10 Ml Syringe) 10 ml FLUSH ASDIRECTED PRN PRN Reason: Keep Vein Open Last Admin: 03/31/21 16:36 Dose: 10 ml Documented by: Discontinued Medications Ciprofloxacin (Ciprofloxacin 500 Mg Tab) Confirm Administered Dose 500 mg .ROUTE .STK-MED ONE Stop: 04/02/21 08:29 Last Admin: 04/02/21 08:36 Dose: Not Given Documented by: Lactated Ringer's (Ringers, Lactated) 1,000 mls @ 125 mls/hr IV ASDIRECTED [facility] Last Admin: 04/01/21 23:00 Dose: 125 mls/hr Documented by: Metronidazole 500 mg/ Premix 100 mls @ 100 mls/hr IV Q8H [facility] Last Admin: 04/02/21 01:13 Dose: 100 mls/hr Documented by: Ciprofloxacin/Dextrose 400 mg/ (Premix) 200 mls @ 200 mls/hr IV Q12H [facility] Last Admin: 04/02/21 04:15 Dose: 200 mls/hr Documented by: Metronidazole (Metronidazole 500 Mg Tab) Confirm Administered Dose 500 mg .ROUTE .STK-MED ONE Stop: 04/02/21 08:28 Last Admin: 04/02/21 08:35 Dose: Not Given Documented by: Comments:: Patient was sitting in the chair next to the bed, awake, alert, interactive, pleasant, she was able to stand up easily for physical exam - Exam Quality Assessment: Reports: Supplemental Oxygen, DVT Prophylaxis General: Reports: Alert, Oriented, Cooperative, No Acute Distress HEENT: Reports: EOMI Lungs: Reports: Clear to Auscultation, Normal Respiratory Effort Cardiovascular: Reports: Regular Rate, Regular Rhythm, No Murmurs GI/Abdominal Exam: Normal Bowel Sounds, Tender Back Exam: Reports: Normal Inspection Extremities: Normal Inspection Skin: Reports: Warm, Dry, Intact Neurological: Reports: No New Focal Deficit Psy/Mental Status: Reports: Alert, Normal Affect, Normal Mood
[2021-04-02] MEDS ORDERED: Ciprofloxacin 500 MG Tab PO SCH (21:00)
== END 2021-04-02 12:10 | disposition home or self-care (01) | DRG 392 ==
LOC: FB.MS 13:53
PROVIDERS: ADMIT Family Medicine; ATTEND Student in an Organized Health Care Education/Training Program
DX: K57.20 Diverticulitis of large intestine with perforation and abscess without bleeding (principal); Q79.60 Ehlers-Danlos syndrome, unspecified; Z68.43 Body mass index [BMI] 50.0-59.9, adult; E66.9 Obesity, unspecified; H54.7 Unspecified visual loss; F17.200 Nicotine dependence, unspecified, uncomplicated; Z20.822 Contact with and (suspected) exposure to COVID-19; Z91.041 Radiographic dye allergy status; Z87.442 Personal history of urinary calculi
CPT/HCPCS: 36415; 80053; 81001; 85025; 87040; A9270-GY; J0744; J2270; J3490; J7120; U0002